=== PATIENT | male | born 1990 | race Caucasian/White ===

== ENCOUNTER 2024-08-25 15:49 | Emergency (ER) | payer MEDICAID, SELFPAY ==
[2024-08-25 16:12] VITALS: BP 156/89; PULSE 128; RESP 14; TEMP 36.9; O2SAT 98; BMI 32.1
--- NOTE | 2024-08-25 18:58 | ED.GENADULT ---
HPI - General Adult General Chief complaint: Arrhythmia/Palpitations Stated complaint: shortness of breath, heart palp Time Seen by Provider: 08/25/24 18:58 History of Present Illness HPI narrative: Noted tremors in hands, oct/ november. Cannot stand for long. Notes heart palpitations w/ exertion. Deep breath seems to reset this feeling. Endorses SOB w exertion. Fatigue. Lump under LEFT breast. Vomits upon waking occasionally Loss of weight per family/ friends. 33-year-old man presenting to the emergency department with a number of concerns. Since this October or November notes particularly rapid heart rate after completion of exertion. A seems to be describing sometimes though the little also be possibly more irregular. This can occur at rest and maybe lasting 30 seconds. Some sort of a deep breath seems to change of back to his now usual more rapid rate. Otherwise appears to be in a relatively high heart rate chronically. Denies any stimulants. Does not drink alcohol regularly and last time probably was more than a month ago. He has been generally fatigued. He has also been generally tremorous and particularly noticeable in his hands, arms. It appears to have an intention component. Over the last couple of months has also noted a lump at his left breast. No discharge from the breast area/nipple. Admits to worrying this area somewhat. Noted also that can vomit upon waking occasionally. Is not endorsing any abdominal pain. When I ask you would admit to being anxious ?probably?. He mentions next girlfriend I believe it helped her move. Sounds like they broke up about a year ago. Related Data Previous Rx's ?Medication ?Instructions ?Recorded propranolol 20 mg tablet 20 mg PO TID #90 tabs 08/25/24 Allergies Allergy/AdvReac Type Severity Reaction Status Date / Time No Known Drug Allergies Allergy Verified 08/25/24 16:19 Review of Systems Status of ROS: Reports: 6 or more systems reviewed and unremarkable except as noted in History and below PFSH PFS Social History Smoking Status: Never smoker Do you use any of these nicotine containing products: Vaping Products How often do you have a drink containing alcohol: monthly or less How often do you have six or more drinks on one occasion: Never AUDIT-C Alcohol total score: 1 Non-prescribed substance use: denies use Exam Narrative: Exam Narrative: Pleasant. Appears moderately anxious. He with movement upper extremities are quite tremulous. Not rhythmic. Well-perfused peripherally. No lower extremity edema. Lungs are clear. Heart is tachycardic and in a regular rhythm. No murmur rub or gallop. Abdomen is soft nontender. Examination of the chest does show some more prominent breast tissue under the left areola versus the right. No erythema. Little tender. Const: Vital Signs, click to edit/add: Vital Signs - 24 hr 08/25/24 16:12 08/25/24 19:32 08/25/24 19:33 Temperature 98.4 F Pulse Rate 95 104 H Pulse Rate [Pulse Oximeter] 128 H Respiratory Rate 14 Blood Pressure 159/77 H Blood Pressure [Ri ght Upper Arm] 156/89 H Pulse Oximetry 98 98 98 Oxygen Delivery Me thod Room Air 08/25/24 19:45 08/25/24 21:55 Temperature 98.7 F 98.7 F Pulse Rate Pulse Rate [Pulse Oximeter] 102 H 85 Respiratory Rate 18 20 Blood Pressure Blood Pressure [Ri ght Upper Arm] 159/71 H 131/81 Pulse Oximetry 97 97 Oxygen Delivery Me thod Room Air Room Air Documenting provider has reviewed patient's vital signs: yes Course Vital Signs Vital signs: Initial Vital Signs Temperature 98.4 F 08/25/24 16:12 Temperature Source Temporal Artery Scan 08/25/24 16:12 Pulse Rate 128 H 08/25/24 16:12 Respiratory Rate 14 08/25/24 16:12 Blood Pressure 156/89 H 08/25/24 16:12 Blood Pressure Mean 111 H 08/25/24 16:12 Blood Pressure Position Sitting 08/25/24 16:12 Pulse Oximetry 98 08/25/24 16:12 Oxygen Delivery Method Room Air 08/25/24 16:12 Vital Signs Temperature 98.4 F 08/25/24 16:12 Pulse Rate 128 H 08/25/24 16:12 Respiratory Rate 14 08/25/24 16:12 Blood Pressure 156/89 H 08/25/24 16:12 Pulse Oximetry 98 08/25/24 16:12 Oxygen Delivery Method Room Air 08/25/24 16:12 Temperature 98.7 F 08/25/24 21:55 Pulse Rate 85 08/25/24 21:55 Respiratory Rate 20 08/25/24 21:55 Blood Pressure 131/81 08/25/24 21:55 Pulse Oximetry 97 08/25/24 21:55 Oxygen Delivery Method Room Air 08/25/24 21:55 Medications Administered Medications: Discontinued Medications Generic Name Dose Route Start Last Admin Trade Name Joan PRN Reason Stop Dose Admin Propranolol HCl 20 mg 08/25/24 20:43 08/25/24 21:07 Propranolol 20 Mg Tablet PO 08/25/24 20:44 20 mg ONCE ONE Administration Medical Decision Making MDM Narrative Medical decision making narrative: First impression is that there is some anxiety here and could be contributing to most of the symptoms. Perhaps this represents some endocrine dysfunction. Hyperthyroid? There was some weight loss noted. He is not noting headaches or visual changes consistent with pituitary mass. Denies stimulants. Would evaluate for primary arrhythmia. Check for evidence of cardiac strain otherwise. Chemistries. Anemia? Remains mildly tachycardic. EKG showing as sinus tachycardia. Labs show mildly elevated alkaline phosphatase, quite low TSH and only THC in urine. I think that hyperthyroid is certainly reasonable explanation for all of the above symptoms. Would anticipate primarily treatment of symptoms at this point. I did discuss this case with hospitalist considering treatment and plan for follow-up. In anticipation of primary care follow-up also add free T4 and T3 studies; these will be pending on departure Given propranolol prior to departure. See patient discharge plan for further discussion We do have a couple labs pending yet. This might be helpful to reference in clinic. Take this propranolol for symptom relief. It does actually provide some level of treatment otherwise as well. I would anticipate you taking 20 mg probably 3 times daily but if your heart rate is not dropping below 80 beats per minute you could probably increase your dosing to 40 mg 3 times daily if needed for symptom relief. For under or uninsured patients, [facility] in [place] I understand has endocrinology who will see people there kind of like [facility] But if you can it would be a good idea to establish care locally. Please schedule follow-up for within 2 weeks if possible. Lab Data Lab results reviewed: Yes I reviewed the patient's lab results Labs: Lab Results 08/25/24 08/25/24 08/25/24 Range/Units 18:31 19:32 19:32 WBC 7.49 (4.50-11.00) K/uL RBC 5.25 (4.30-5.90) m/uL Hgb 14.9 (13.5-17.5) gm/dL Hct 43.8 (37.0-53.0) % MCV 83 (80-100) fL MCH 28 (26-34) pg MCHC 34 (32-36) gm/dL RDW Coeff of Fariba 12.9 (11.5-15.5) % Plt Count 275 (140-440) K/uL Neut % (Auto) 39.4 L (42.0-72.0) % Lymph % (Auto) 43.7 (20-44) % [place] % (Auto) 11.2 H (0.0-11.0) % Eos % (Auto) 5.6 (0.0-7.0) % Baso % (Auto) 0.1 (0.0-3.0) % Neut # (Auto) 3.00 (1.7-7.0) K/uL Lymph # (Auto) 3.27 H (0.90-2.90) K/uL [place] # (Auto) 0.80 (0.00-0.90) K/UL Eos # (Auto) 0.42 (0.00-0.50) K/uL Baso # (Auto) 0.01 (0.00-0.30) K/uL Abs Immat Gran (auto) 0.00 (0.00-0.30) K/uL Imm/Tot Granulo (auto) 0.0 % Sodium 134 L (135-149) mmol/L Potassium 4.2 (3.6-5.1) mmol/L Chloride 101 (96-114) mmol/L Carbon Dioxide 26 (20-32) mmol/L Anion Gap 7 (7-15) mEq/L BUN 16 (5-24) mg/dL Creatinine 0.7 (0.5-1.5) mg/dL Estimated Creat Clear 177.77 Estimated GFR 126 ml/min Glucose 103 (60-115) mg/dL Calcium 9.7 (8.4-10.6) mg/dL Magnesium 2.2 (1.5-2.6) mg/dL Total Bilirubin 0.7 Cancelled (0.1-1.5) mg/dL Direct Bilirubin 0.2 (0.0-0.5) mg/dL AST (12-35) U/L ALT (4-50) U/L Alkaline Phosphatase (40-150) U/L Troponin I (0.01-0.04) ng/mL C-Reactive Protein (0.5-1.0) mg/dL NT-Pro-B Natriuret Pep pg/mL Total Protein (6.0-8.3) g/dL Albumin (3.3-5.0) g/dL TSH Free T4 (0.70-1.85) ng/dL T3 (80-200) ng/dL Urine Color (Yellow) Urine Appearance (Clear) Urine pH (5.0-8.5) Ur Specific [place] (1.000-1.030) Urine Protein (Negative) Urine Glucose (UA) (Negative) Urine Ketones (Negative) Urine Blood (Negative) Urine Nitrite (Negative) Urine Bilirubin (Negative) Urine Urobilinogen (0.2-1.0) Ur Leukocyte Esterase (Negative) Urine RBC (0-2) Urine WBC (0-5) Ur Squamous Epith Cells (None-Few) Urine Bacteria (None) Urine Opiates Screen (Negative) Ur Oxycodone Screen (Negative) Urine Methadone Screen (Negative) Ur Barbiturates Screen (Negative) U Tricyclic Antidepress (Negative) Ur Phencyclidine Scrn (Negative) Ur Amphetamines Screen (Negative) U Methamphetamines Scrn (Negative) U Benzodiazepines Scrn (Negative) Urine Cocaine Screen (Negative) U Marijuana (THC) Screen (Negative) Ur Drug Screen Comment Lab Acknowledgement POC Troponin I 0.00 L (0.01-0.04) ng/ml 08/25/24 08/25/24 08/25/24 Range/Units 19:32 19:32 19:32 WBC (4.50-11.00) K/uL RBC (4.30-5.90) m/uL Hgb (13.5-17.5) gm/dL Hct (37.0-53.0) % MCV (80-100) fL MCH (26-34) pg MCHC (32-36) gm/dL RDW Coeff of Fariba (11.5-15.5) % Plt Count (140-440) K/uL Neut % (Auto) (42.0-72.0) % Lymph % (Auto) (20-44) % [place] % (Auto) (0.0-11.0) % Eos % (Auto) (0.0-7.0) % Baso % (Auto) (0.0-3.0) % Neut # (Auto) (1.7-7.0) K/uL Lymph # (Auto) (0.90-2.90) K/uL [place] # (Auto) (0.00-0.90) K/UL Eos # (Auto) (0.00-0.50) K/uL Baso # (Auto) (0.00-0.30) K/uL Abs Immat Gran (auto) (0.00-0.30) K/uL Imm/Tot Granulo (auto) % Sodium (135-149) mmol/L Potassium (3.6-5.1) mmol/L Chloride (96-114) mmol/L Carbon Dioxide (20-32) mmol/L Anion Gap (7-15) mEq/L BUN (5-24) mg/dL Creatinine (0.5-1.5) mg/dL Estimated Creat Clear Estimated GFR ml/min Glucose (60-115) mg/dL Calcium (8.4-10.6) mg/dL Magnesium (1.5-2.6) mg/dL Total Bilirubin (0.1-1.5) mg/dL Direct Bilirubin Cancelled (0.0-0.5) mg/dL AST 43 H Cancelled (12-35) U/L ALT 33 Cancelled (4-50) U/L Alkaline Phosphatase 206 H (40-150) U/L Troponin I (0.01-0.04) ng/mL C-Reactive Protein (0.5-1.0) mg/dL NT-Pro-B Natriuret Pep pg/mL Total Protein (6.0-8.3) g/dL Albumin (3.3-5.0) g/dL TSH Free T4 (0.70-1.85) ng/dL T3 (80-200) ng/dL Urine Color (Yellow) Urine Appearance (Clear) Urine pH (5.0-8.5) Ur Specific [place] (1.000-1.030) Urine Protein (Negative) Urine Glucose (UA) (Negative) Urine Ketones (Negative) Urine Blood (Negative) Urine Nitrite (Negative) Urine Bilirubin (Negative) Urine Urobilinogen (0.2-1.0) Ur Leukocyte Esterase (Negative) Urine RBC (0-2) Urine WBC (0-5) Ur Squamous Epith Cells (None-Few) Urine Bacteria (None) Urine Opiates Screen (Negative) Ur Oxycodone Screen (Negative) Urine Methadone Screen (Negative) Ur Barbiturates Screen (Negative) U Tricyclic Antidepress (Negative) Ur Phencyclidine Scrn (Negative) Ur Amphetamines Screen (Negative) U Methamphetamines Scrn (Negative) U Benzodiazepines Scrn (Negative) Urine Cocaine Screen (Negative) U Marijuana (THC) Screen (Negative) Ur Drug Screen Comment Lab Acknowledgement POC Troponin I (0.01-0.04) ng/ml 08/25/24 08/25/24 08/25/24 Range/Units 19:32 19:32 19:32 WBC (4.50-11.00) K/uL RBC (4.30-5.90) m/uL Hgb (13.5-17.5) gm/dL Hct (37.0-53.0) % MCV (80-100) fL MCH (26-34) pg MCHC (32-36) gm/dL RDW Coeff of Fariba (11.5-15.5) % Plt Count (140-440) K/uL Neut % (Auto) (42.0-72.0) % Lymph % (Auto) (20-44) % [place] % (Auto) (0.0-11.0) % Eos % (Auto) (0.0-7.0) % Baso % (Auto) (0.0-3.0) % Neut # (Auto) (1.7-7.0) K/uL Lymph # (Auto) (0.90-2.90) K/uL [place] # (Auto) (0.00-0.90) K/UL Eos # (Auto) (0.00-0.50) K/uL Baso # (Auto) (0.00-0.30) K/uL Abs Immat Gran (auto) (0.00-0.30) K/uL Imm/Tot Granulo (auto) % Sodium (135-149) mmol/L Potassium (3.6-5.1) mmol/L Chloride (96-114) mmol/L Carbon Dioxide (20-32) mmol/L Anion Gap (7-15) mEq/L BUN (5-24) mg/dL Creatinine (0.5-1.5) mg/dL Estimated Creat Clear Estimated GFR ml/min Glucose (60-115) mg/dL Calcium (8.4-10.6) mg/dL Magnesium (1.5-2.6) mg/dL Total Bilirubin (0.1-1.5) mg/dL Direct Bilirubin (0.0-0.5) mg/dL AST (12-35) U/L ALT (4-50) U/L Alkaline Phosphatase Cancelled (40-150) U/L Troponin I < 0.01 L (0.01-0.04) ng/mL C-Reactive Protein < 0.5 L (0.5-1.0) mg/dL NT-Pro-B Natriuret Pep 54 pg/mL Total Protein 7.5 Cancelled (6.0-8.3) g/dL Albumin 4.5 Cancelled (3.3-5.0) g/dL TSH Cancelled Free T4 (0.70-1.85) ng/dL T3 (80-200) ng/dL Urine Color (Yellow) Urine Appearance (Clear) Urine pH (5.0-8.5) Ur Specific [place] (1.000-1.030) Urine Protein (Negative) Urine Glucose (UA) (Negative) Urine Ketones (Negative) Urine Blood (Negative) Urine Nitrite (Negative) Urine Bilirubin (Negative) Urine Urobilinogen (0.2-1.0) Ur Leukocyte Esterase (Negative) Urine RBC (0-2) Urine WBC (0-5) Ur Squamous Epith Cells (None-Few) Urine Bacteria (None) Urine Opiates Screen (Negative) Ur Oxycodone Screen (Negative) Urine Methadone Screen (Negative) Ur Barbiturates Screen (Negative) U Tricyclic Antidepress (Negative) Ur Phencyclidine Scrn (Negative) Ur Amphetamines Screen (Negative) U Methamphetamines Scrn (Negative) U Benzodiazepines Scrn (Negative) Urine Cocaine Screen (Negative) U Marijuana (THC) Screen (Negative) Ur Drug Screen Comment Lab Acknowledgement POC Troponin I (0.01-0.04) ng/ml 08/25/24 08/25/24 08/25/24 Range/Units 19:32 21:17 Unknown WBC (4.50-11.00) K/uL RBC (4.30-5.90) m/uL Hgb (13.5-17.5) gm/dL Hct (37.0-53.0) % MCV (80-100) fL MCH (26-34) pg MCHC (32-36) gm/dL RDW Coeff of Fariba (11.5-15.5) % Plt Count (140-440) K/uL Neut % (Auto) (42.0-72.0) % Lymph % (Auto) (20-44) % [place] % (Auto) (0.0-11.0) % Eos % (Auto) (0.0-7.0) % Baso % (Auto) (0.0-3.0) % Neut # (Auto) (1.7-7.0) K/uL Lymph # (Auto) (0.90-2.90) K/uL [place] # (Auto) (0.00-0.90) K/UL Eos # (Auto) (0.00-0.50) K/uL Baso # (Auto) (0.00-0.30) K/uL Abs Immat Gran (auto) (0.00-0.30) K/uL Imm/Tot Granulo (auto) % Sodium (135-149) mmol/L Potassium (3.6-5.1) mmol/L Chloride (96-114) mmol/L Carbon Dioxide (20-32) mmol/L Anion Gap (7-15) mEq/L BUN (5-24) mg/dL Creatinine (0.5-1.5) mg/dL Estimated Creat Clear Estimated GFR ml/min Glucose (60-115) mg/dL Calcium (8.4-10.6) mg/dL Magnesium (1.5-2.6) mg/dL Total Bilirubin (0.1-1.5) mg/dL Direct Bilirubin (0.0-0.5) mg/dL AST (12-35) U/L ALT (4-50) U/L Alkaline Phosphatase (40-150) U/L Troponin I (0.01-0.04) ng/mL C-Reactive Protein (0.5-1.0) mg/dL NT-Pro-B Natriuret Pep pg/mL Total Protein (6.0-8.3) g/dL Albumin (3.3-5.0) g/dL TSH < 0.015 L Free T4 4.16 H (0.70-1.85) ng/dL T3 418 H (80-200) ng/dL Urine Color Yellow (Yellow) Urine Appearance Clear (Clear) Urine pH 5.5 (5.0-8.5) Ur Specific [place] >= 1.030 (1.000-1.030) Urine Protein Trace A (Negative) Urine Glucose (UA) Negative (Negative) Urine Ketones Negative (Negative) Urine Blood Negative (Negative) Urine Nitrite Negative (Negative) Urine Bilirubin Negative (Negative) Urine Urobilinogen 1.0 (0.2-1.0) Ur Leukocyte Esterase Negative (Negative) Urine RBC 0-2 (0-2) Urine WBC 0-2 (0-5) Ur Squamous Epith Cells Few (None-Few) Urine Bacteria None (None) Urine Opiates Screen Negative (Negative) Ur Oxycodone Screen Negative (Negative) Urine Methadone Screen Negative (Negative) Ur Barbiturates Screen Negative (Negative) U Tricyclic Antidepress Negative (Negative) Ur Phencyclidine Scrn Negative (Negative) Ur Amphetamines Screen Negative (Negative) U Methamphetamines Scrn Negative (Negative) U Benzodiazepines Scrn Negative (Negative) Urine Cocaine Screen Negative (Negative) U Marijuana (THC) Screen POSITIVE A (Negative) Ur Drug Screen Comment See Note Lab Acknowledgement Test Added POC Troponin I (0.01-0.04) ng/ml ECG Data Attestation: I personally reviewed and interpreted this ECG as follows: (Sinus tachycardia at 109) Discharge Plan Discharge Clinical Impression: Hyperthyroidism, Tremor, Tachycardia Patient Disposition: Home, Self-Care Condition: Stable Additional Instructions: We do have a couple labs pending yet. This might be helpful to reference in clinic. Take this propranolol for symptom relief. It does actually provide some level of treatment otherwise as well. I would anticipate you taking 20 mg probably 3 times daily but if your heart rate is not dropping below 80 beats per minute you could probably increase your dosing to 40 mg 3 times daily if needed for symptom relief. For under or uninsured patients, [facility] in [place] I understand has endocrinology who will see people there kind of like [facility] But if you can it would be a good idea to establish care locally. Please schedule follow-up for within 2 weeks if possible. Prescriptions: New propranolol 20 mg tablet 20 mg PO TID Qty: 90 2RF Follow Up/Referrals: Provider,Not a Local [Primary Care Provider] - Stand Alone Forms: Open [facility] Info Instructions
--- NOTE | 2024-08-25 19:01 | CRLHL7_ITS ---
For Patients: As a result of the Cures Act, medical imaging exams and procedure reports are released immediately into your electronic medical record. You may view this report before your referring provider. If you have questions, please contact your health care provider. INDICATION: : Exertional fatigue, tachycardia COMPARISON: None TECHNIQUE: One view(s) of the chest FINDINGS: The cardiomediastinal silhouette and pulmonary vasculature are unremarkable. There is no focal airspace consolidation, pleural effusion, or pneumothorax. No displaced fractures. IMPRESSION: No acute cardiopulmonary process. Dictated by Ashok West MD @ 08/25/2024 7:34:12 PM (Electronically Signed)
[2024-08-25 19:32] VITALS: PULSE 95; O2SAT 98
[2024-08-25 19:33] VITALS: BP 159/77; PULSE 104; O2SAT 98
[2024-08-25 19:40] LABS: Amphetamine Screen Urine Negative (Negative); Barbiturate Screen Urine Negative (Negative); Benzodiazepines Screen Urine Negative (Negative); Cannabinoid Screen Urine POSITIVE (Negative); Cocaine Screen Urine Negative (Negative); Methadone Screen Urine Negative (Negative); Methamphetamines Screen Urine Negative (Negative); Opiate Screen Urine Negative (Negative); Oxycodone Screen Urine Negative (Negative); Phencyclidine Screen Urine Negative (Negative); Tricyclic Antidepressant Urine Negative (Negative)
[2024-08-25 19:45] VITALS: BP 159/71; PULSE 102; RESP 18; TEMP 37.1; O2SAT 97
[2024-08-25 19:46] LABS: Appearance Urine Clear (Clear); Bilirubin Urine Negative (Negative); Blood Urine Negative (Negative); Color Urine Yellow (Yellow); Glucose Urine Negative (Negative); Ketones Urine Negative (Negative); Leukocyte Esterase Urine Negative (Negative); Nitrite Urine Negative (Negative); Protein Urine Trace (Negative); Specific Gravity Urine >= 1.030 (1.000-1.030); pH Urine 5.5 (5.0-8.5)
[2024-08-25 19:52] LABS: Basophils Absolute Auto 0.01 K/uL (0.00-0.30); Basophils Percent Auto 0.1 % (0.0-3.0); Eosinophils Absolute Auto 0.42 K/uL (0.00-0.50); Eosinophils Percent Auto 5.6 % (0.0-7.0); Hematocrit 43.8 % (37.0-53.0); Hemoglobin* 14.9 gm/dL (13.5-17.5); Lymphocytes Absolute Auto 3.27 K/uL (0.90-2.90); Lymphocytes Percent Auto 43.7 % (20-44); Mean Corpuscular HGB Conc 34 gm/dL (32-36); Mean Corpuscular Hemoglobin 28 pg (26-34); Mean Corpuscular Volume 83 fL (80-100); Monocytes Percent Auto 11.2 % (0.0-11.0); Neutrophils Percent Auto 39.4 % (42.0-72.0); Platelet Count* 275 K/uL (140-440); RDW Coefficient of Variation % 12.9 % (11.5-15.5); Red Blood Count 5.25 m/uL (4.30-5.90); White Blood Count* 7.49 K/uL (4.50-11.00)
[2024-08-25 19:53] LABS: RBC Urine 0-2 (0-2); Squamous Epithelial Cell Urine Few (None-Few); WBC Urine 0-2 (0-5)
[2024-08-25 19:56] LABS: Slide Review Reflex No
[2024-08-25 20:08] LABS: Albumin* 4.5 g/dL (3.3-5.0); Chloride* 101 mmol/L (96-114); Sodium* 134 mmol/L (135-149)
[2024-08-25 20:09] LABS: Potassium* 4.2 mmol/L (3.6-5.1)
[2024-08-25 20:11] LABS: Alkaline Phosphatase* 206 U/L (40-150); Anion Gap 7 mEq/L (7-15); Aspartate Amino Transferase* 43 U/L (12-35); Bilirubin Direct* 0.2 mg/dL (0.0-0.5); Bilirubin Total* 0.7 mg/dL (0.1-1.5); Blood Urea Nitrogen* 16 mg/dL (5-24); Carbon Dioxide* 26 mmol/L (20-32); Creatinine* 0.7 mg/dL (0.5-1.5); Est. Creatinine Clearance* 177.77; Estimated Glomerular Filt Rate 126 ml/min; Total Protein* 7.5 g/dL (6.0-8.3)
[2024-08-25 20:12] LABS: Alanine Aminotransferase* 33 U/L (4-50); Calcium* 9.7 mg/dL (8.4-10.6); Glucose* 103 mg/dL (60-115); Magnesium* 2.2 mg/dL (1.5-2.6)
[2024-08-25 20:20] LABS: C Reactive Protein* < 0.5 mg/dL (0.5-1.0)
[2024-08-25 20:27] LABS: NT Pro B Type NatriureticPept* 54 pg/mL; Troponin I* < 0.01 ng/mL (0.01-0.04)
[2024-08-25 20:43] LABS: Thyroid Stimulating Hormone* < 0.015 uIU/mL (0.270-4.20)
[2024-08-25] MEDS: PROPRANOLOL 20 MG TABLET PO (21:07)
[2024-08-25 21:55] VITALS: BP 131/81; PULSE 85; RESP 20; TEMP 37.1; O2SAT 97
[2024-08-25 22:10] LABS: Free T4 Free Thyroxine* 4.16 ng/dL (0.70-1.85)
[2024-08-27 05:26] LABS: Total T3 418 ng/dL (80-200)
== END 2024-08-25 21:56 | disposition home or self-care (01) ==
PROVIDERS: Family Medicine; Emergency Provider Family Medicine
DX: E05.90 Thyrotoxicosis, unspecified without thyrotoxic crisis or storm (principal); R25.1 Tremor, unspecified; R00.0 Tachycardia, unspecified
CPT/HCPCS: 36415; 71045; 80048; 80076; 80306; 81001; 83735; 83880; 84439; 84443; 84480; 84484; 85025; 86140; 93005; 99284; 99285; A9270